=== PATIENT | female | born 1960 | race Caucasian/White ===

== ENCOUNTER 2022-06-22 20:19 | Emergency (ER) | payer BC ==
[2022-06-22] MEDS ORDERED: Fentanyl 100 MCG/2 ML VIAL ONE ×2 (20:32→20:37)
[2022-06-22] MEDS ORDERED: Ondansetron PF 4 MG/2 ML Vial ONE ×2 (20:37→20:46)
[2022-06-22] MEDS ORDERED: Morphine 4 MG/ML VIAL ONE (21:36)
[2022-06-22] MEDS ORDERED: Lidocaine 1% w/Epinephrine 1:100K 20 ML VIAL ONE (21:50)
[2022-06-22] MEDS ORDERED: Boostrix 0.5 ML (Tdap) VIAL (>/=7 yrs of age) ONE (23:34)
== END 2022-06-22 23:30 | disposition home or self-care (01) ==
LOC: ERS 20:19
DX: S02.40DA Maxillary fracture, left side, initial encounter for closed fracture (principal); S01.81XA Laceration without foreign body of other part of head, initial encounter; I10 Essential (primary) hypertension; W19.XXXA Unspecified fall, initial encounter
CPT/HCPCS: 13132; 70450; 70486; 72125; 90471; 90715; 96374; 96375; G0390; J2270; J2405; J3010